=== PATIENT | male | born 1940 | race Caucasian/White ===

== ENCOUNTER 2022-04-03 12:12 | Outpatient (RCR) | payer MEDICARE, OTHER, SELFPAY ==
--- NOTE | 2022-04-03 16:26 | PTOPEVAL1 ---
Assessment and note entered by Orlando Jasmine, PT Evaluation Information Assessment Status Evaluation Diagnosis Parkinson's disease Onset patient reports has gotten bad in the last 18 months Subjective Information Patient reports he is coming here for therapy because he has trouble getting in and out of the chair, does not like walking with the walker, getting in and out of bed, easily fatigued, and needs extended time to get dressed in the morning. 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 Assessment PT Clinical Summary Mr. Hidalgo is an 82 year old male coming into the clinic today for decreased functional mobility from Parkinson's disease. He is unable to get out of chairs without assistance or a grab bar, up from his bed, and can only walk about 300 feet which is the distance from his apartment to his dining room at his assisted living facility. Recommend that patient does a home exercise program along with some of the principles of a LSVT program to help with freezing and crouched posture to improve his functional mobility Plan of Care Interventions Gait Training,Manual Therapy,Neuro Re-education, Therapeutic Activities,Therapeutic Exercise PT Services Indicated Yes Treatment Frequency and 2x/wk for 4 weeks Duration These treatments will address the objective and functional deficits as defined above. The patient will be advanced safely and appropriately in order for the patient to progress towards his/her prior level of function. Additional exercises will be introduced and as well as a comprehensive home exercise program upon discharge, if needed, ?to ensure carryover of functional gains achieved in the clinic. This treatment plan has been reviewed and agreement upon by the patient.
--- NOTE | 2022-04-08 08:37 | PCPTNOTE ---
Patient called in from [facility] where he is an inpatient right now to say he will not be coming into the clinic for awhile. He thinks he will be discharged today, but will be going to a rehab facility. Therapist recommended [facility]. [facility] is closer to his home. Wished patient the best of luck and then a quick recovery so he will be able to come back and see us.
--- NOTE | 2022-05-23 13:37 | PTOPDC ---
Assessment and note entered by Orlando Jasmine, PT Evaluation Information Assessment Status Discharge - Pt Not Present Diagnosis Parkinson's disease Onset patient reports has gotten bad in the last 18 months Subjective Information Patient reports he is coming here for therapy because he has trouble getting in and out of the chair, does not like walking with the walker, getting in and out of bed, easily fatigued, and needs extended time to get dressed in the morning. Patient wants therapist to be honest with him and not promise anything he does not think he cannot deliver Assessment PT Clinical Summary Patient had come for initial evaluation on , but since then has been admitted to the hospital secondary to Sepsis according to patient and has also gone to IP rehab. Patient is discharged from skilled outpatient physical therapy at this time, as it is physical therapist' s understanding that patient will be doing home health after his IP rehab stay. If patient needs further physical therapy after that please provide patient with a new order. Thank you.
== END 2022-05-23 14:52 | disposition home or self-care (01) ==
LOC: ANHPT 12:12
DX: G20 Parkinson's disease (principal)
CPT/HCPCS: 97110; 97116; 97161